=== PATIENT | female | born 1940 | race Caucasian/White ===

== ENCOUNTER → 2019-11-11 | Outpatient (CLI) | payer MEDICARE ==
--- NOTE | 2019-11-11 15:17 | Diagnostic Imaging Report ---
EXAMINATION: PA and lateral chest at 02:46 p.m. INDICATION: Pneumonia. FINDINGS: There are no prior studies available for comparison. The heart size is mildly enlarged. The lungs are generally clear. There is no evidence for failure, pneumonia, or for a significant pleural effusion. There is slight blunting of both costophrenic angles posteriorly. This could be related to pleural thickening or less likely small effusions. If previous exams are available, they would be helpful for comparison. The mediastinum is not widened. The osseous structures are intact. IMPRESSION: 1. The blunted appearance of the costophrenic angles posteriorly may be secondary to pleural thickening. There could also be a small amount of fluid present. If previous studies are available, they would be helpful for comparison. 2. There is no acute cardiopulmonary abnormality noted otherwise. 3. There is cardiomegaly. Dictated by: Dictated on workstation # [id number]
== END ==
LOC: RAD FS 14:25
PROVIDERS: ATTEND Family Medicine
DX: J18.9 Pneumonia, unspecified organism (principal); I51.7 Cardiomegaly
CPT/HCPCS: 71046